=== PATIENT | male | born 1970 | race Caucasian/White ===

== ENCOUNTER 2018-08-17 06:08 | Inpatient (IN) | payer OTHER ==
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
[2018-08-17] MEDS ORDERED: NALOXONE HCL 0.4 MG/ML INJ IVP PRN (07:29)
[2018-08-17] MEDS ORDERED: ONDANSETRON DISINTEGRATING 4 MG TAB PO PRN (07:29)
[2018-08-17] MEDS ORDERED: ONDANSETRON 4 MG/2 ML VIAL IVP PRN (07:29)
[2018-08-17 07:30] LABS: PLATELET COUNT 209 10^3/uL (150-400)
[2018-08-17 07:38] LABS: INR 0.93 (0.83-1.16); PROTIME(PATIENT) 12.7 SEC (12.0-15.0)
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
[2018-08-17] MEDS: ACETAMINOPHEN 325 MG TAB PO PRN ×3 (08:49→20:06)
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
[2018-08-18] MEDS: ACETAMINOPHEN 325 MG TAB PO PRN (09:19)
[2018-08-18 11:53] VITALS: BP 124/68
== END 2018-08-18 13:01 | disposition home or self-care (01) | DRG 87 ==
LOC: EDUNIT# → F3N 08:36
PROVIDERS: ADMIT Surgery; ATTEND Surgery
DX: S06.6X0A Traumatic subarachnoid hemorrhage without loss of consciousness, initial encounter (principal); S02.40DA Maxillary fracture, left side, initial encounter for closed fracture; S02.40FA Zygomatic fracture, left side, initial encounter for closed fracture; M79.642 Pain in left hand; V17.4XXA Pedal cycle driver injured in collision with fixed or stationary object in traffic accident, initial encounter; Y92.89 Other specified places as the place of occurrence of the external cause
CPT/HCPCS: 92523-GN; 97161-GP; 97165-GO